=== PATIENT | female | born 1945 | race Caucasian/White ===

== ENCOUNTER 2016-12-02 11:28 | Emergency (ER) | payer MEDICARE, OTHER ==
[2016-06-06 14:28] VITALS: BMI 19.8
[~2016-12-02 11:28] MED LIST: ARMOUR THYROID30 MG PO; CLIMARA 0.0.1 MG/PAT TRANSDERM; HYDROCODONE-APA1 TAB PO; HYZAAR 100-25 T1 TAB PO; KLOR-CON M2020 MEQ PO; NEXIUM20 MG PO; NORVASC10 MG PO; PROMETRIUM100 MG PO; RESTORIL15 MG PO; VALIUM5 MG PO; VITAMIN D31000 UNIT PO; XANAX0.5 MG PO
== END 2016-12-02 12:40 | disposition home or self-care (01) ==
LOC: D.ER 11:28
DX: S42.202A Unspecified fracture of upper end of left humerus, initial encounter for closed fracture (principal); W01.0XXA Fall on same level from slipping, tripping and stumbling without subsequent striking against object, initial encounter; Y93.89 Activity, other specified; Y92.019 Unspecified place in single-family (private) house as the place of occurrence of the external cause; C50.919 Malignant neoplasm of unspecified site of unspecified female breast; I10 Essential (primary) hypertension

== ENCOUNTER 2017-01-14 12:07 | Emergency (ER) | payer MEDICARE, OTHER ==
[2016-06-06 14:28] VITALS: BMI 19.8
== END 2017-01-14 16:51 | disposition home or self-care (01) ==
LOC: D.ER 12:07
DX: R51 Headache (principal); M25.512 Pain in left shoulder; W18.30XA Fall on same level, unspecified, initial encounter; Y93.89 Activity, other specified; Y92.013 Bedroom of single-family (private) house as the place of occurrence of the external cause; C50.919 Malignant neoplasm of unspecified site of unspecified female breast; I10 Essential (primary) hypertension

== ENCOUNTER 2020-06-26 09:19 | Inpatient (IN) | payer MEDICARE ==
[~2020-06-26] VITALS: Ht 149.9 cm; Wt 46.7 kg
[2020-06-26 09:48] LABS: BASOPHILS 0.9 % (0-2); EOSINOPHILS 4.3 % (0-7); HEMATOCRIT 37.6 % (36.0-48.0); HEMOGLOBIN 11.9 g/dL (12-16); IMMATURE GRANULOCYTES 0.4 % (0-5); LYMPHOCYTES 36.7 % (15-50); MCH 30.2 pg (26.0-34.0); MCHC 31.6 g/dL (31.0-37.0); MCV 95.4 fL (80.0-100.0); MEAN PLATELET VOLUME 8.7 fL (7.4-10.4); MONOCYTES 8.7 % (2-11); PLATELET COUNT 263 10x3/uL (130-400); RBC 3.94 10x6/uL (4.00-5.40); RDW 13.9 % (11.5-14.5); WBC 7.8 10x3/uL (4.8-10.8)
[2020-06-26 09:56] LABS: ANION GAP 15.2 mmol/L (8-16); CALCIUM 8.3 mg/dL (8.5-10.1); CARBON DIOXIDE 22.1 mmol/L (21.0-32.0); CREATININE - SERUM 2.3 mg/dL (0.6-1.3); POTASSIUM - SERUM 3.3 mmol/L (3.5-5.1)
[2020-06-26 10:04] LABS: ALBUMIN 2.5 g/dL (3.4-5.0); BILIRUBIN - TOTAL 0.3 mg/dL (0.2-1.3); PROTEIN - SERUM 6.4 g/dL (6.4-8.2)
[2020-06-26 10:12] LABS: BILIRUBIN NEGATIVE (NEGATIVE); KETONE NEGATIVE (NEGATIVE); NITRITE POSITIVE (NEGATIVE); UROBILINOGEN NORMAL (NORMAL)
[2020-06-26 10:13] LABS: RED CELLS - URINE 0-5 /hpf (0-5); WHITE CELLS - URINE >50 /hpf (0-5)
[2020-06-26 10:14] LABS: BACTERIA MODERATE /hpf (NONE SEEN)
--- NOTE | 2020-06-26 12:45 | NUR ---
PT PROVIDED WITH LUNCH
--- NOTE | 2020-06-26 14:49 | NUR ---
CALLED REPORT TO JADYN ROOT
--- NOTE | 2020-06-26 15:38 | NUR ---
PT ASSISTED TO RESTROOM. PT AMBULATED INDEPENDENTLY.
[2020-06-26 15:57] VITALS: BP 120/70; BMI 20.8
--- NOTE | 2020-06-26 16:01 | NUR ---
PATIENT ADMITTED TO ROOM 2218. ADMISSION COMPLETE. DENIES NEEDS. BED LOW. CALL BARRETO AND PERSONAL ITEMS IN REACH. WILL CONTINUE TO MONITOR.
--- NOTE | 2020-06-26 18:21 | NUR ---
RESTING IN BED. DENIES NEEDS. BED LOW. CALL BARRETO AND PERSONAL ITEMS IN REACH.
[2020-06-26 20:20] LABS: APTT 33.9 SECONDS (22.8-39.4); INR 1.16 (0.85-1.17); PROTIME 14.7 SECONDS (11.6-15.0)
[2020-06-26 20:22] LABS: % SATURATION 28 % (15-55); IRON 30 ug/dl (35-150); TOTAL IRON BIND CAPACITY 104 ug/dl (260-445); UNSAT IRON BIND CAPACITY 74 ug/dl (150-375)
[2020-06-26 20:49] LABS: MAGNESIUM - SERUM 1.9 mg/dL (1.8-2.4)
[2020-06-26 21:40] VITALS: BP 165/94
[2020-06-26 23:45] VITALS: BP 155/71
[2020-06-27 04:24] VITALS: BP 159/48
--- NOTE | 2020-06-27 07:10 | NUR ---
A&O RESTING IN BED WITH EYES OPEN. NO C/O PAIN. NO S/S OF ACUTE DISTRESS NOTED. RESERVE RIGHT ARM, D/T MASTECTOMY. UP WITH ASSIST. IV TO LEFT WRIST, NS INFUSING @ 75ML/HR. SITE PATENT WITHOUT REDNESS OR SWELLING. DENIES ANY NEEDS AT THIS TIME. CALL LIGHT IN REACH. WILL CONTINUE TO MONITOR.
[2020-06-27 09:53] VITALS: BP 187/85
[2020-06-27 10:08] LABS: BASOPHILS 1.4 % (0-2); EOSINOPHILS 3.8 % (0-7); HEMATOCRIT 38.4 % (36.0-48.0); HEMOGLOBIN 12.1 g/dL (12-16); IMMATURE GRANULOCYTES 0.3 % (0-5); LYMPHOCYTES 38.8 % (15-50); MCHC 31.5 g/dL (31.0-37.0); MEAN PLATELET VOLUME 9.9 fL (7.4-10.4); MONOCYTES 7.8 % (2-11); NEUTROPHILS 47.9 % (40-80); PLATELET COUNT 247 10x3/uL (130-400); RBC 4.04 10x6/uL (4.00-5.40); RDW 13.9 % (11.5-14.5); WBC 7.1 10x3/uL (4.8-10.8)
[2020-06-27 10:34] LABS: ALBUMIN 2.4 g/dL (3.4-5.0); BILIRUBIN - TOTAL 0.27 mg/dL (0.2-1.3); CALCIUM 7.8 mg/dL (8.5-10.1); CARBON DIOXIDE 23.5 mmol/L (21.0-32.0); CREATININE - SERUM 1.6 mg/dL (0.6-1.3); MAGNESIUM - SERUM 1.8 mg/dL (1.8-2.4); POTASSIUM - SERUM 3.5 mmol/L (3.5-5.1); PROTEIN - SERUM 6.5 g/dL (6.4-8.2)
[2020-06-27 11:27] LABS: ERYTHROCYTE SEDIMENTATION RATE 41 mm/hr (0-30)
[2020-06-27 12:45] VITALS: BP 149/82
[2020-06-27 16:37] VITALS: BP 151/85
--- NOTE | 2020-06-27 17:25 | NUR ---
I REVIEWED THIS PATIENT AND I AGREE WITH THE SHIFT ASSESSMENT COMPLETED BY THE ENT CONSULTANT TODAY.
[2020-06-27 23:03] VITALS: BP 142/76
[2020-06-28 05:58] LABS: ALBUMIN 2.3 g/dL (3.4-5.0); ANION GAP 15.8 mmol/L (8-16); BILIRUBIN - TOTAL 0.31 mg/dL (0.2-1.3); CALCIUM 7.4 mg/dL (8.5-10.1); CARBON DIOXIDE 20.8 mmol/L (21.0-32.0); CREATININE - SERUM 1.4 mg/dL (0.6-1.3); MAGNESIUM - SERUM 1.7 mg/dL (1.8-2.4); POTASSIUM - SERUM 3.6 mmol/L (3.5-5.1); PROTEIN - SERUM 5.8 g/dL (6.4-8.2)
[2020-06-28 07:13] VITALS: BP 149/81
[2020-06-28 07:19] LABS: BASOPHILS 0.9 % (0-2); EOSINOPHILS 3.3 % (0-7); HEMATOCRIT 37.4 % (36.0-48.0); IMMATURE GRANULOCYTES 0.3 % (0-5); LYMPHOCYTES 40.1 % (15-50); MCH 30.1 pg (26.0-34.0); MCHC 32.1 g/dL (31.0-37.0); MCV 93.7 fL (80.0-100.0); MEAN PLATELET VOLUME 11.2 fL (7.4-10.4); MONOCYTES 9.1 % (2-11); NEUTROPHILS 46.3 % (40-80); RBC 3.99 10x6/uL (4.00-5.40); RDW 13.8 % (11.5-14.5); WBC 7.7 10x3/uL (4.8-10.8)
[2020-06-28 07:27] LABS: PLATELET COUNT 165 10x3/uL (130-400)
--- NOTE | 2020-06-28 08:15 | NUR ---
ASSESSMENT PER FLOW SHEET. PATIENT IS WITHOUT DISTRESS.CALL LIGHT IN REACH
[2020-06-28 09:31] VITALS: BP 160/90
[2020-06-28] MEDS ORDERED: FLORAJEN3 CAPS460 MG PO (11:46)
[2020-06-28] MEDS ORDERED: HYDRALAZINE HCL10 MG PO (11:46)
[2020-06-28] MEDS ORDERED: OMNICEF300 MG PO (11:47)
[2020-06-28 12:34] VITALS: BP 129/73
[2020-06-28 14:44] VITALS: Ht 149.9 cm; Wt 46.7 kg
--- NOTE | 2020-06-28 15:38 | MORECARE ---
CASE MANAGEMENT DISCHARGE SUMMARY PATIENT: MARGIE CONSTANTINO UNIT: [id number] ADM DATE: 06/26/20 AGE: 74 : [birth year] SEX: F ROOM/BED: D.6357 AUTHOR: CEASARDOC PHYSICIAN: REFERRING PHYSICIAN: UARELIA AVENDANO MD DATE OF SERVICE: 06/28/20 Discharge Plan Patient Name: MARGIE CONSTANTINO Facility: [facility]:[place] : 1945 Planned Disposition: Anticipated Discharge Date: Discharge Date: Expected LOS: Initial Reviewer: [email or web address] Initial Review Date: 06/26/2020 Generated: 06/28/20 4:37 pm Comments DCP- Discharge Planning Updated by [email or web address]: Machelle Marin on 06/28/20 2:[address] Patient Name: MARGIE CONSTANTINO Admission Status: ER Accout number: [id number] Admission Date: 06-26-2020 : 1945 Admission Diagnosis: Attending: AURELIA AVENDANO Current LOS: 2 Anticipated DC Date: Planned Disposition: Primary Insurance: MEDICARE A & B Discharge Planning Comments: CM met with patient at bedside after explaining CM role and obtaining verbal consent. CM discussed availability / needs of home health, REHAB and medical equipment. PATIENT DENIES ANY DISCHARGE NEEDS. IMM SIGNED. AND ELLEN SIGNED TO RESUME CURRENT HH. PATIENT DOES NOT REMEMBER NAME OF HH AT THIS TIME. STATES WILL BE OFF WORK TO PICK HER UP ABOUT 6 TODAY. Wrapping Machine Helper: Machelle Marin DCPIA - Discharge Planning Initial Assessment Updated by [email or web address]: Machelle Marin on 06/28/20 3:35 pm * Is the patient Alert and Oriented? Yes * PCP MELISSA * Pharmacy [facility] * Preadmission Environment Home with Family * ADLs Independent * Other Equipment CANE * Community resources currently utilized Home Health * Please name any agencies selected above. CAN'T REMEMBER NAME * Additional services required to return to the preadmission environment? No * Can the patient safely return to the preadmission environment? Yes Coverage Notice Reviewer: [id number] - Machelle Marin Notice Issued Date-Time: 06/28/2020 15:37 Notice Type: IM Discharge Notice Notice Delivered To: Relationship to Patient: Kennel Keeper Name: Delivery Method: - Nichole Days: Prior Verbal Notification: Recipient Understood Notice: Recipient Signature: Med Rec Note Co-signed by Attending: Coverage Notice Comment: Reviewer: [email or web address] oRbby Marin Notice Issued Date-Time: 06/28/2020 15:37 Notice Type: Patient Choice Letter Notice Delivered To: Relationship to Patient: Kennel Keeper Name: Delivery Method: - Nichole Days: Prior Verbal Notification: Recipient Understood Notice: Yes Recipient Signature: Yes Med Rec Note Co-signed by Attending: Coverage Notice Comment: RESUME CURRENT HH, CAN'T REMEBER NAME AT THIS TIME. Patient Name: MARGIE CONSTANTINO Page [phone] at 1538 All edits/amendments must be made on the electronic document DICTATION DATE: 06/28/201536 WOUND NURSE: PENG 06/28/201536 RPT#: [id number] DC DATE: STATUS: ADM IN [facility] [address] [place] [address] END OF REPORT
--- NOTE | 2020-06-28 18:09 | NUR ---
DISCHARGE INSTRUCTIONS,STATES UNDERSTANDING. IV DCD WITH CATH TIP INTACT
--- NOTE | 2020-06-28 18:10 | NUR ---
LEFT UNIT VIA WHEELCHAIR FOR TRANSPORT HOME
--- NOTE | 2020-06-29 08:21 | MORECARE ---
CASE MANAGEMENT DISCHARGE SUMMARY PATIENT: MARGIE CONSTANTINO UNIT: [id number] ADM DATE: 06/26/20 AGE: 74 : 47 SEX: F ROOM/BED: D.0479 AUTHOR: CEASAR,DOC PHYSICIAN: REFERRING PHYSICIAN: AURELIA AVENDANO MD DATE OF SERVICE: 06/29/20 Discharge Plan Patient Name: MARGIE CONSTANTINO Facility: [facility]:[place] : 1945 Planned Disposition: Anticipated Discharge Date: Discharge Date: 06/28/2020 Expected LOS: Initial Reviewer: [email or web address] Initial Review Date: 06/26/2020 Generated: 06/29/20 9:20 am Comments DCP- Discharge Planning Updated by [email or web address]: Machelle Marin on 06/28/20 2:[address] Patient Name: MARGIE CONSTANTINO Admission Status: ER Accout number: [id number] Admission Date: 06-26-2020 : 1945 Admission Diagnosis: Attending: AURELIA AVENDANO Current LOS: 2 Anticipated DC Date: Planned Disposition: Primary Insurance: MEDICARE A & B Discharge Planning Comments: CM met with patient at bedside after explaining CM role and obtaining verbal consent. CM discussed availability / needs of home health, REHAB and medical equipment. PATIENT DENIES ANY DISCHARGE NEEDS. IMM SIGNED. AND ELLEN SIGNED TO RESUME CURRENT HH. PATIENT DOES NOT REMEMBER NAME OF HH AT THIS TIME. STATES WILL BE OFF WORK TO PICK HER UP ABOUT 6 TODAY. Maintenance Pipefitter: Machelle Marin DCPIA - Discharge Planning Initial Assessment Updated by [email or web address]: Machelle Marin on 06/28/20 3:35 pm * Is the patient Alert and Oriented? Yes * PCP MELISSA * Pharmacy [facility] * Preadmission Environment Home with Family * ADLs Independent * Other Equipment CANE * Community resources currently utilized Home Health * Please name any agencies selected above. CAN'T REMEMBER NAME * Additional services required to return to the preadmission environment? No * Can the patient safely return to the preadmission environment? Yes Coverage Notice Reviewer: [id number] - Machelle Marin Notice Issued Date-Time: 06/28/2020 15:37 Notice Type: IM Discharge Notice Notice Delivered To: Relationship to Patient: Fire Pilot Name: Delivery Method: - Nichole Days: Prior Verbal Notification: Recipient Understood Notice: Recipient Signature: Med Rec Note Co-signed by Attending: Coverage Notice Comment: Reviewer: [email or web address] Robby Marin Notice Issued Date-Time: 06/28/2020 15:37 Notice Type: Patient Choice Letter Notice Delivered To: Relationship to Patient: Fire Pilot Name: Delivery Method: - Nichole Days: Prior Verbal Notification: Recipient Understood Notice: Yes Recipient Signature: Yes Med Rec Note Co-signed by Attending: Coverage Notice Comment: RESUME CURRENT HH, CAN'T REMEBER NAME AT THIS TIME. Last DP export: 06/28/20 2:38 p Patient Name: MARGIE CONSTANTINO Page [phone] at 0821 All edits/amendments must be made on the electronic document DICTATION DATE: 06/29/20819 EMAIL MARKETING MANAGER: PENG 06/29/20819 RPT#: [id number] DC DATE:06/28/20 STATUS: DIS IN [place] [address] [place] [address] END OF REPORT
[2020-06-29 14:10] LABS: SPE - A/G RATIO 0.8 (0.7-1.7); SPE - ALBUMIN 2.7 g/dL (2.9-4.4); SPE - ALPHA-1 GLOBULIN 0.3 g/dL (0.0-0.4); SPE - ALPHA-2 GLOBULIN 0.7 g/dL (0.4-1.0); SPE - BETA GLOBULIN 0.7 g/dL (0.7-1.3); SPE - GAMMA GLOBULIN 1.6 g/dL (0.4-1.8); SPE - M-SPIKE Not Observed g/dL (Not Observed)
== END 2020-06-28 18:12 | disposition home or self-care (01) | DRG 690 ==
LOC: D.ER 09:19 → D.MS 11:14
PROVIDERS: Family Medicine; Internal Medicine Nephrology; ADMIT Family Medicine; ATTEND Family Medicine
DX: N12 Tubulo-interstitial nephritis, not specified as acute or chronic (principal); D64.9 Anemia, unspecified; E87.6 Hypokalemia; N17.9 Acute kidney failure, unspecified; E03.9 Hypothyroidism, unspecified; I10 Essential (primary) hypertension; F41.9 Anxiety disorder, unspecified; Z85.3 Personal history of malignant neoplasm of breast; G89.29 Other chronic pain